=== PATIENT | female | born 1985 | race Two or more races ===

== ENCOUNTER 2019-05-20 06:21 | Inpatient (IN) ==
[2019-05-20] MEDS ORDERED: ONDANSETRON 4 MG/2 ML VIAL IV PRN ×2 (06:52→12:25)
[2019-05-20] MEDS ORDERED: LACTATED RINGERS 250 ML IV ONE (06:52)
[2019-05-20] MEDS ORDERED: LACTATED RINGERS 1,000 ML IV SCH ×2 (07:00→12:30)
[2019-05-20 07:43] LABS: Alanine Aminotransferase 22 U/L (13-56); Albumin 2.3 G/DL (3.4-5.0); Alkaline Phosphatase 147 U/L (45-117); Aspartate Amino Transferase 30 U/L (0-37); Bilirubin,Total < 0.39 MG/DL (0.2-1.0); Blood Urea Nitrogen 9 MG/DL (7-18); Calcium 8.8 MG/DL (8.5-10.1); Estimated Glom Filtration Rate 656 ML/MIN; Glucose 126 MG/DL (74-106); Osmolality,Calculated 270.1 MOS/KG (273-304); Total Protein 6.7 G/DL (6.4-8.3)
[2019-05-20] MEDS ORDERED: FAMOTIDINE 20 MG/2 ML VIAL IV ONE (08:12)
[2019-05-20] MEDS ORDERED: LACTATED RINGERS 1,000 ML IV ONE (08:12)
[2019-05-20] MEDS ORDERED: CITRIC ACID/SODIUM CITRATE 30 ML UDCUP PO ONE (08:12)
[2019-05-20] MEDS ORDERED: PROMETHAZINE 25 MG/1 ML VIAL IM ONE (08:13)
[2019-05-20] MEDS ORDERED: hydrOXYzine HCL 25 MG/1 ML VIAL IM PRN (08:13)
[2019-05-20] MEDS ORDERED: diphenhydrAMINE 50 MG/1 ML VIAL IV PRN ×2 (08:13)
[2019-05-20] MEDS ORDERED: ePHEDrine 50 MG/ML AMP IV PRN (08:13)
[2019-05-20] MEDS ORDERED: OXYTOCIN 10 UNIT/ML VIAL IM ONE (08:22)
[2019-05-20] MEDS ORDERED: OXYTOCIN/LR 30 UNIT/1,000 ML BAG IV ONE (08:22)
[2019-05-20 08:25] LABS: Basophils % 0.4 % (0.0-0.8); Eosinophils % 0.1 % (0.00-10.9); Hematocrit 35.7 VOL% (35.7-47.0); Hemoglobin 11.8 GM/DL (12.0-16.0); Immature Granulocytes % 0.4 %; Immature Granulocytes Absolute 0.03 #; Lymphocytes # 2.5 10*3/uL (1.4-4.0); Lymphocytes % 33.4 % (21.3-54.2); Mean Corpuscular HGB Conc 33.1 GM/DL (32-36); Monocytes % 7.5 % (1.7-12.7); Neutrophils % 58.2 % (38.7-73.9); Platelet Count 258 T/CUMM (130-400); Red Cell Distribution Width 13.2 % (9.3-17.3); White Blood Count 7.4 T/CUMM (4-12)
[2019-05-20] MEDS ORDERED: ceFAZolin 2,000 MG in PREMIX 1 EACH IV ONE (09:30)
[2019-05-20] MEDS ORDERED: miSOPROStoL 200 MCG TABLET ONE (09:44)
[2019-05-20] MEDS ORDERED: TRANEXAMIC ACID 1,000 MG/10 ML VIAL ONE (09:44)
[2019-05-20] MEDS ORDERED: CARBOPROST TROMETHAMINE 250 MCG/ML AMP IM ONE (09:45)
[2019-05-20] MEDS ORDERED: METHYLERGONOVINE 0.2 MG/1 ML AMP ONE (09:45)
[2019-05-20] MEDS ORDERED: MORPHINE 10 MG/10 ML VIAL ONE (10:54)
[2019-05-20] MEDS ORDERED: PHENYLEPHRINE 1 MG/10 ML SYRINGE IV ONE (10:54)
[2019-05-20] MEDS ORDERED: BUPIVACAINE SPINAL 0.75% 2 ML AMP SPINAL ONE (10:54)
[2019-05-20] MEDS ORDERED: ROPIVACAINE 0.5% 30 ML VIAL ONE (10:54)
[2019-05-20] MEDS ORDERED: DEXAMETHASONE 4 MG/1 ML VIAL ONE (10:55)
[2019-05-20 11:47] LABS: Cord Arterial Blood HCO3 23.4 MMOL/L; Cord Venous Blood PCO2 44.4 MMHG; Cord Venous Blood PO2 33.6 MMHG
[2019-05-20] MEDS ORDERED: ACETAMINOPHEN 325 MG TABLET PO PRN (12:25)
[2019-05-20] MEDS ORDERED: RHO(D) IMMUNE GLOBULIN 300 MCG SYRINGE IM ONE (12:25)
[2019-05-20] MEDS ORDERED: OXYTOCIN/LR 20 UNIT/1,000 ML BAG IV ONE (12:25)
[2019-05-20] MEDS ORDERED: IBUPROFEN 800 MG TABLET PO PRN (12:25)
[2019-05-20] MEDS ORDERED: SIMETHICONE CHEW 80 MG TABLET PO PRN (12:25)
[2019-05-20] MEDS ORDERED: GLUCAGON 1 MG VIAL IM PRN ×2 (12:25→12:37)
[2019-05-20] MEDS ORDERED: DEXTROSE 10% 250 ML BAG IV PRN (12:25)
[2019-05-20] MEDS ORDERED: DEXTROSE 50% 25 GM/50 ML VIAL IV PRN (12:37)
[2019-05-20] MEDS: KETOROLAC 30 MG/1 ML VIAL IV SCH ×2 (12:58→18:33)
[2019-05-20] MEDS: ACETAMINOPHEN 500 MG TABLET PO SCH ×2 (13:00→18:33)
[2019-05-20 13:10] LABS: Apearance,Urine CLEAR (Clear); Bilirubin,Urine Negative (Negative); Blood, Urine Negative (Negative); Glucose,Urine (UA) Negative (Negative); Ketones,Urine 5 mg/dL (Negative); Mucus,Urine Occasional /LPF (Occasional); Nitrite,Urine Negative (Negative); Protein,Urine Negative; RBC,Urine 1 /HPF (0-4); Squamous Epithelial Cell,Urine Occasional /HPF (0-10); Urine Color Yellow (Yellow); Urine Specific Gravity 1.014 (1.001-1.035); Urine Urobilinogen < 2.0 EU/DL (0.2-1.0); WBC,Urine 1 /HPF (0-6)
[2019-05-20] MEDS: INSULIN REGULAR 100 UNIT/ML SUBCUT SCH ×4 (15:41→23:37)
[2019-05-20] MEDS: ceFAZolin 1,000 MG in SYRINGE 1 EACH IV SCH (16:45)
[2019-05-20 20:16] LABS: Hemoglobin 9.8 GM/DL (12.0-16.0)
[2019-05-20] MEDS: DOCUSATE SODIUM 100 MG CAPSULE PO SCH (21:40)
[2019-05-21] MEDS: KETOROLAC 30 MG/1 ML VIAL IV SCH ×2 (02:15→06:20)
[2019-05-21] MEDS: ACETAMINOPHEN 500 MG TABLET PO SCH ×2 (02:15→06:20)
[2019-05-21] MEDS: ceFAZolin 1,000 MG in SYRINGE 1 EACH IV SCH (02:20)
[2019-05-21] MEDS ORDERED: ceFAZolin 1,000 MG in SYRINGE 1 EACH IV SCH (02:30)
[2019-05-21] MEDS: INSULIN REGULAR 100 UNIT/ML SUBCUT SCH ×3 (06:31→21:48)
[2019-05-21 06:43] LABS: Basophils % 0.1 % (0.0-0.8); Eosinophils % 0.1 % (0.00-10.9); Hematocrit 24.3 VOL% (35.7-47.0); Immature Granulocytes % 0.5 %; Immature Granulocytes Absolute 0.05 #; Lymphocytes # 2.8 10*3/uL (1.4-4.0); Lymphocytes % 27.2 % (21.3-54.2); Mean Corpuscular HGB Conc 32.9 GM/DL (32-36); Mean Corpuscular Volume 86.2 FL (87-102); Mean Platelet Volume 10.5 FL (9.6-12.0); Monocytes % 6.3 % (1.7-12.7); Neutrophils % 65.8 % (38.7-73.9); Platelet Count 213 T/CUMM (130-400); Red Blood Count 2.82 MC/CUMM (3.8-5.5); Red Cell Distribution Width 13.3 % (9.3-17.3); White Blood Count 10.3 T/CUMM (4-12)
[2019-05-21] MEDS: MULTIVITAMIN (PRENATAL) TABLET PO SCH (08:57)
[2019-05-21] MEDS: DOCUSATE SODIUM 100 MG CAPSULE PO SCH ×2 (08:57→21:48)
[2019-05-21] MEDS: FERROUS SULFATE 325 MG TABLET PO SCH ×2 (08:57→21:47)
[2019-05-21] MEDS: MAGNESIUM HYDROXIDE SUSP 30 ML UDCUP PO PRN (08:58)
[2019-05-21] MEDS: INSULIN ASPART PROTAMINE/ASPART 70/30 100 UNIT/ML SUBCUT SCH ×2 (09:42→17:30)
[2019-05-21] MEDS: IBUPROFEN 800 MG TABLET PO PRN (17:35)
[2019-05-21] MEDS ORDERED: ACETAMINOPHEN 325 MG TABLET PO PRN (19:00)
[2019-05-22] MEDS: INSULIN REGULAR 100 UNIT/ML SUBCUT SCH ×4 (07:47→21:00)
[2019-05-22] MEDS: IBUPROFEN 800 MG TABLET PO PRN (07:48)
[2019-05-22] MEDS: MULTIVITAMIN (PRENATAL) TABLET PO SCH (08:00)
[2019-05-22] MEDS: FERROUS SULFATE 325 MG TABLET PO SCH ×2 (08:00→19:59)
[2019-05-22] MEDS: DOCUSATE SODIUM 100 MG CAPSULE PO SCH ×2 (08:00→19:59)
[2019-05-22] MEDS: INSULIN ASPART PROTAMINE/ASPART 70/30 100 UNIT/ML SUBCUT SCH ×2 (08:45→17:48)
[2019-05-22 10:03] LABS: Basophils % 0.1 % (0.0-0.8); Eosinophils % 0.2 % (0.00-10.9); Hematocrit 25.9 VOL% (35.7-47.0); Hemoglobin 8.3 GM/DL (12.0-16.0); Immature Granulocytes % 0.4 %; Immature Granulocytes Absolute 0.04 #; Lymphocytes # 2.1 10*3/uL (1.4-4.0); Lymphocytes % 22.9 % (21.3-54.2); Mean Corpuscular Volume 87.2 FL (87-102); Mean Platelet Volume 10.4 FL (9.6-12.0); Monocytes % 7.1 % (1.7-12.7); Neutrophils % 69.3 % (38.7-73.9); Platelet Count 228 T/CUMM (130-400); Red Blood Count 2.97 MC/CUMM (3.8-5.5); Red Cell Distribution Width 13.7 % (9.3-17.3); White Blood Count 9.2 T/CUMM (4-12)
[2019-05-22] MEDS: METOCLOPRAMIDE 10 MG TABLET PO PRN (16:22)
[2019-05-23] MEDS ORDERED: INFLUENZA VIRUS VACCINE 0.5 ML SYRINGE IM ONE (07:59)
[2019-05-23] MEDS: INSULIN REGULAR 100 UNIT/ML SUBCUT SCH ×2 (08:40→12:18)
[2019-05-23] MEDS: INSULIN ASPART PROTAMINE/ASPART 70/30 100 UNIT/ML SUBCUT SCH (08:52)
[2019-05-23 10:02] VITALS: BP 100/66
[2019-05-23] MEDS: MULTIVITAMIN (PRENATAL) TABLET PO SCH (10:15)
[2019-05-23] MEDS: MAGNESIUM HYDROXIDE SUSP 30 ML UDCUP PO PRN (10:15)
[2019-05-23] MEDS: DOCUSATE SODIUM 100 MG CAPSULE PO SCH (10:15)
[2019-05-23] MEDS: METOCLOPRAMIDE 10 MG TABLET PO PRN (10:16)
[2019-05-23] MEDS: FERROUS SULFATE 325 MG TABLET PO SCH (10:16)
== END 2019-05-23 13:35 | disposition home or self-care (01) | DRG 786 ==
LOC: N.LD 06:21 → N.OB 15:11
PROVIDERS: ADMIT Obstetrics & Gynecology; ATTEND Obstetrics & Gynecology
PROC: LDCSECT (ICD-10-PCS; 2019-05-20 08:45)